=== PATIENT | female | born 1985 | race Caucasian/White ===

== ENCOUNTER 2016-09-20 13:22 | Outpatient (CLI) | payer OTHER | END 2016-09-20 13:23 | disposition home or self-care (01) | DX: N76.0 Acute vaginitis (principal) ==

== ENCOUNTER 2017-08-03 08:00 | Outpatient (CLI) | payer OTHER ==
[2017-08-03 18:13] LABS: BASOPHILS % (AUTO) 0.6 %; EOSINOPHILS # (AUTO) 0.1 10^3/uL (0.0-0.7); EOSINOPHILS % (AUTO) 1.3 %; HCT - HEMATOCRIT 42.8 % (37.0-47.0); HGB - HEMOGLOBIN 14.1 g/dL (12.0-16.0); LYMPHOCYTES # (AUTO) 2.2 10^3/uL (1.5-3.5); LYMPHOCYTES % (AUTO) 42.7 %; MEAN CORPUSCULAR HEMOGLOBIN 28.9 pg (27.0-31.0); MEAN CORPUSCULAR VOLUME 87.6 fL (81.0-99.0); MEAN PLATELET VOLUME 11.3 fL (7.9-10.8); MONOCYTES # (AUTO) 0.4 10^3/uL (0.0-1.0); MONOCYTES % (AUTO) 8.5 %; NEUTROPHILS # (AUTO) 2.4 10^3/uL (1.5-6.6); NEUTROPHILS % (AUTO) 46.9 %; NUCLEATED RED BLOOD CELLS AUTO 0.1 /100WBC; RED BLOOD COUNT 4.89 10^6/uL (4.20-5.40)
[2017-08-03 18:32] LABS: ALBUMIN/GLOBULIN RATIO 1.4 (1.0-2.2); BUN - BLOOD UREA NITROGEN 14 mg/dL (6-20); CALCIUM 9.2 mg/dL (8.5-10.3); CARBON DIOXIDE - CO2 25 mmol/L (21-32); CHLORIDE 101 mmol/L (101-111); CHOL/HDL RATIO 2.1 (<4.4); CHOLESTEROL 185 mg/dL; CREATININE 0.7 mg/dL (0.4-1.0); GFR - MDRD 98 (>89); GLUCOSE 84 mg/dL (70-100); HDL CHOLESTEROL 89 mg/dL; POTASSIUM 3.8 mmol/L (3.5-5.0); SODIUM 135 mmol/L (135-145); TOTAL PROTEIN 7.8 g/dL (6.7-8.2); TRIGLYCERIDES 48 mg/dL; VLDL CHOLESTEROL 10 mg/dL
== END 2017-08-03 08:01 | disposition home or self-care (01) ==
LOC: LAB.WCP 08:00
PROVIDERS: ATTEND Physician Assistant Medical
DX: Z00.00 Encounter for general adult medical examination without abnormal findings (principal)
CPT/HCPCS: 36415; 80050; 80061

== ENCOUNTER 2017-09-26 08:00 | Outpatient (CLI) | payer OTHER | END 2017-09-26 08:01 | LOC: LAB.R 08:00 | PROVIDERS: ATTEND Registered Nurse | DX: Z31.49 Encounter for other procreative investigation and testing (principal) | CPT/HCPCS: 87491; 87591 ==

== ENCOUNTER 2017-10-05 17:26 | Outpatient (CLI) | payer OTHER | END 2017-10-05 17:27 | disposition home or self-care (01) | LOC: LAB 17:26 | PROVIDERS: ATTEND Registered Nurse | DX: Z31.49 Encounter for other procreative investigation and testing (principal) | CPT/HCPCS: 84144 ==

== ENCOUNTER 2017-10-25 17:36 | Outpatient (CLI) | payer OTHER ==
[2017-10-25 19:11] LABS: PROLACTIN 16.69 ng/mL
[2017-10-25 19:34] LABS: FOLLICLE STIMULATING HORMONE 6.73 mIU/mL
[2017-10-25 19:35] LABS: LUTEINIZING HORMONE 18.48 mIU/mL
[2017-10-26 10:47] LABS: ESTRADIOL 44 pg/mL
[2017-10-29 22:21] LABS: DHEA SULFATE 298 mcg/dL (23-266)
== END 2017-10-25 17:37 | disposition home or self-care (01) ==
LOC: LAB 17:36
PROVIDERS: ATTEND Registered Nurse
DX: Z31.49 Encounter for other procreative investigation and testing (principal)
CPT/HCPCS: 36415; 81599; 82627; 82670; 83001; 83002; 84146; 84402; 84403

== ENCOUNTER 2017-11-06 18:10 | Emergency (ER) | payer OTHER ==
[2017-11-06 18:19] VITALS: BP 139/91
[2017-11-06] MEDS ORDERED: SULFAMETH/TRIMETH DS 800/160 MG TABLET PO STA (18:28)
[2017-11-06] MEDS ORDERED: BUFFERED LIDOCAINE 10 ML SYRINGE SUBQ STA (18:28)
--- NOTE | 2017-11-06 18:30 | ED Physician Documentation ---
PD HPI SKIN - Stated complaint Stated Complaint: BUMP NEAR L ARMPIT - Chief complaint Chief Complaint: Wound - History obtained from History obtained from: Patient - History of Present Illness Timing - onset: Other (3 days painful lump L axilla, no fever) Review of Systems Constitutional: denies: Fever, Chills Nose: reports: Reviewed and negative Cardiac: reports: Reviewed and negative Respiratory: reports: Reviewed and negative PD PAST MEDICAL HISTORY - Past Medical History Past Medical History: No - Past Surgical History Past Surgical History: No - Present Medications Home Medications: Ambulatory Orders Medication Instructions Recorded Confirmed Sulfamethoxazole/Trimethoprim 1 each PO BID 7 Days tablet 11/06/17 [Sulfamethoxazole-Tmp Ds Tablet] - Allergies Allergies/Adverse Reactions: Allergies Allergy/AdvReac Type Severity Reaction Status Date / Time cefaclor [From [facility]] Allergy Unknown Verified 11/06/17 18:18 - Social History Does the pt smoke?: No Smoking Status: Never smoker PD ED PE NORMAL - Vitals Vital signs reviewed: Yes - General General: Alert and oriented X 3, No acute distress - Derm Derm: Other (In the anterior left axilla there is a 1 x 2 cm pointed abscess with mild overlying cellulitis.) - Neuro Neuro: Alert and oriented X 3, Normal speech - Psych Psych: Normal mood, Normal affect Results - Vitals Vitals: Vital Signs - 24 hr 11/06/17 18:16 Temperature 36.9 C Heart Rate 89 Respiratory 16 Rate Blood Pressure 139/91 H O2 Saturation 100 Oxygen O2 Source Room air Procedures - Abscess I&D (location) L axilla Preparation: Alcohol, Lidocaine 1% Incision: Incised with scalpel, Purulent drainage, Loculations broken, Culture obtained. No: Packed Other: Pt tolerated well, Antibiotic prescribed Departure - Departure Disposition: 01 Home, Self Care Clinical Impression: Abscess Condition: Good Record reviewed to determine appropriate education?: Yes Instructions: ED Abscess IandD Prescriptions: Sulfamethoxazole/Trimethoprim [Sulfamethoxazole-Tmp Ds Tablet] 1 each PO BID 7 Days tablet Comments: We are performing a wound culture, the results should be done in 48-72 hours. If antibiotic change is necessary we will call you. Return if worse in the meantime, especially if you develop increased pain, fevers, cannot keep down the medication. Otherwise follow-up with your physician in approximately 2-3 days. Your blood pressure was elevated today on check into the emergency department. This does not mean that you have hypertension, it is a common phenomenon to come to the emergency department and have elevated blood pressure. I recommend that you see your primary care physician within the week to have it rechecked when you are feeling better.
[2017-11-06] MEDS ORDERED: BUFFERED LIDOCAINE 10 ML SYRINGE ONE (18:32)
== END 2017-11-06 18:41 | disposition home or self-care (01) ==
LOC: ED 18:10
DX: L02.412 Cutaneous abscess of left axilla (principal); R03.0 Elevated blood-pressure reading, without diagnosis of hypertension
CPT/HCPCS: 10060; 87070; 87205; 99283; A9270

== ENCOUNTER 2017-11-16 11:16 | Outpatient (CLI) | payer OTHER | END 2017-11-16 11:17 | disposition home or self-care (01) | LOC: LAB.R 11:16 | PROVIDERS: ATTEND Registered Nurse | DX: Z11.3 Encounter for screening for infections with a predominantly sexual mode of transmission (principal) | CPT/HCPCS: 87491; 87591 ==

== ENCOUNTER 2017-12-08 09:02 | Outpatient (CLI) | payer OTHER ==
--- NOTE | 2017-12-08 15:19 | Ultrasound Report ---
EXAM: RENAL ULTRASOUND EXAM DATE: 12/08/2017 10:06 AM. CLINICAL HISTORY: ANDROGEN EXCESS. COMPARISON: None. TECHNIQUE: Real-time scanning was performed with static images obtained. FINDINGS: Right Kidney: 10.6 x 4.1 x 4.8 cm. Mild hydronephrosis. No mass. Left Kidney: 11.3 x 5.2 x 5.2 cm. Mild hydronephrosis. No mass. Bladder: Bilateral jets seen. The prevoid bladder volume was 565.9 cc. The postvoid bladder volume wa s 46.4 cc. Other: None. IMPRESSION: Mild bilateral hydronephrosis decreases to some extent post void [facility] Referring Provider Line: [phone] SITE ID: [id number]
--- NOTE | 2017-12-08 15:24 | Ultrasound Report ---
EXAM: PELVIC ULTRASOUND EXAM DATE: 12/08/2017 11:30 AM. CLINICAL HISTORY: POLYCYSTIC OVARIAN SYNDROME. COMPARISON: None. TECHNIQUE: Realtime transabdominal pelvic scan performed to identify the uterus and adnexa and as an overview of other pelvic structures, followed by transvaginal scan to provide greater detail of the u terus and adnexa, with static image documentation. FINDINGS: Uterus: 8.1 x 3.3 x 4.7 cm, volume 65.7 cc. Anteverted position. Normal overall size and echotexture. Masses: None. Endometrium: 6 mm. Normal. Cervix: Unremarkable. Right Ovary: 4.2 x 2.5 x 2.3 cm, volume 12.6 cc. Normal echotexture and blood flow. Left Ovary: 3.9 x 1.9 x 3.4 cm, volume 13.1 cc. Normal echotexture and blood flow. Free Fluid: None. Other: None. IMPRESSION: Normal pelvic ultrasound. [facility] Referring Provider Line: [phone] SITE ID: [id number]
== END 2017-12-08 09:03 | disposition home or self-care (01) ==
LOC: DI 09:02
PROVIDERS: ATTEND Registered Nurse
DX: N13.30 Unspecified hydronephrosis (principal); E28.2 Polycystic ovarian syndrome
CPT/HCPCS: 76770; 76830; 76856

== ENCOUNTER 2018-09-08 11:19 | Outpatient (CLI) | payer OTHER | END 2018-09-08 11:20 | disposition home or self-care (01) | LOC: LAB 11:19 | PROVIDERS: ATTEND Registered Nurse | DX: E28.2 Polycystic ovarian syndrome (principal) ==

== ENCOUNTER 2018-10-01 07:58 | Outpatient (CLI) | payer OTHER | END 2018-10-01 07:59 | disposition home or self-care (01) | LOC: LAB 07:58 | PROVIDERS: ATTEND Registered Nurse | DX: E28.2 Polycystic ovarian syndrome (principal) | CPT/HCPCS: 36415; 82951; 84144 ==

== ENCOUNTER 2018-10-14 17:26 | Outpatient (CLI) | payer OTHER | END 2018-10-14 17:27 | disposition home or self-care (01) | LOC: LAB 17:26 | PROVIDERS: ATTEND Registered Nurse | DX: E28.2 Polycystic ovarian syndrome (principal) | CPT/HCPCS: 36415; 84144 ==

== ENCOUNTER 2018-11-28 10:20 | Outpatient (CLI) | payer OTHER ==
[2018-11-28 19:44] LABS: HEMOGLOBIN A1C 0.43 g/dL
== END 2018-11-28 10:21 | disposition home or self-care (01) ==
LOC: LAB.WCP 10:20
PROVIDERS: ATTEND Registered Nurse
DX: N97.9 Female infertility, unspecified (principal)
CPT/HCPCS: 36415; 82947; 83036; 84144; 84702

== ENCOUNTER 2018-12-06 21:10 | Outpatient (CLI) | payer OTHER ==
--- NOTE | 2018-12-08 06:42 | Ultrasound Report ---
Reason: POSITIVE TEST Procedure Date: 12/06/2018 Accession Number: [id number] / [id number] Procedure: US - OB Transvaginal CPT Code: FULL RESULT: EXAM: FIRST TRIMESTER OBSTETRIC ULTRASOUND (Less than 11 weeks) EXAM DATE: 12/06/2018 10:56 PM. CLINICAL HISTORY: test positive. LMP: 10/23/2018, 6 weeks 2 days. COMPARISONS: PELVIC W/TRANSVAGINAL 12/08/2017 10:00 AM. TECHNIQUE: Transabdominal and transvaginal ultrasound examination with static image documentation. FINDINGS: Gestational Sac: An intrauterine fluid-filled sac contains both an embryo and yolk sac. Embryo: CRL (crown-rump length) measures 4 mm corresponding to an estimated gestational age of 6 weeks 2 days. Heart Rate: 114 beats per minute. Placenta: Not visible at this gestational age. Amniotic fluid: Not accurately assessed at this gestational age. Uterus: Unremarkable anteverted appearance. Cervix: Closed. Right Ovary: Volume 16 cc. Normal echotexture and blood flow. Left Ovary: Volume 4 cc. Normal echotexture and blood flow. Free Fluid: None. Other: None. IMPRESSION: Single live intrauterine at 6 weeks 2 days by LMP, today's exam is concordant -- for an estimated delivery date of 07/30/2019. [facility]
--- NOTE | 2018-12-08 06:42 | Ultrasound Report ---
Reason: TEST POSITIVE Procedure Date: 12/06/2018 Accession Number: [id number] / [id number] Procedure: US - OB First Trimester CPT Code: FULL RESULT: EXAM: FIRST TRIMESTER OBSTETRIC ULTRASOUND (Less than 11 weeks) EXAM DATE: 12/06/2018 10:56 PM. CLINICAL HISTORY: test positive. LMP: 10/23/2018, 6 weeks 2 days. COMPARISONS: PELVIC W/TRANSVAGINAL 12/08/2017 10:00 AM. TECHNIQUE: Transabdominal and transvaginal ultrasound examination with static image documentation. FINDINGS: Gestational Sac: An intrauterine fluid-filled sac contains both an embryo and yolk sac. Embryo: CRL (crown-rump length) measures 4 mm corresponding to an estimated gestational age of 6 weeks 2 days. Heart Rate: 114 beats per minute. Placenta: Not visible at this gestational age. Amniotic fluid: Not accurately assessed at this gestational age. Uterus: Unremarkable anteverted appearance. Cervix: Closed. Right Ovary: Volume 16 cc. Normal echotexture and blood flow. Left Ovary: Volume 4 cc. Normal echotexture and blood flow. Free Fluid: None. Other: None. IMPRESSION: Single live intrauterine at 6 weeks 2 days by LMP, today's exam is concordant -- for an estimated delivery date of 07/30/2019. [facility]
== END 2018-12-06 21:11 | disposition home or self-care (01) ==
LOC: DI 21:10
PROVIDERS: ATTEND Registered Nurse
DX: Z32.01 Encounter for pregnancy test, result positive (principal)
CPT/HCPCS: 76801; 76817

== ENCOUNTER 2019-01-01 08:00 | Outpatient (CLI) | payer OTHER ==
[2019-01-01 12:48] LABS: BASOPHILS % (AUTO) 0.2 %; EOSINOPHILS % (AUTO) 0.5 %; HGB - HEMOGLOBIN 12.6 g/dL (12.0-16.0); LYMPHOCYTES # (AUTO) 1.6 10^3/uL (1.5-3.5); LYMPHOCYTES % (AUTO) 20.7 %; MEAN CORPUSCULAR HEMOGLOBIN 29.5 pg (27.0-31.0); MEAN CORPUSCULAR HGB CONC 34.2 g/dL (32.0-36.0); MEAN CORPUSCULAR VOLUME 86.1 fL (81.0-99.0); MEAN PLATELET VOLUME 10.1 fL (7.9-10.8); MONOCYTES # (AUTO) 0.5 10^3/uL (0.0-1.0); MONOCYTES % (AUTO) 6.5 %; NEUTROPHILS # (AUTO) 5.5 10^3/uL (1.5-6.6); NEUTROPHILS % (AUTO) 72.1 %; PLT - PLATELET COUNT 163 10^3/uL (130-450); RED BLOOD COUNT 4.29 10^6/uL (4.20-5.40); RED CELL DISTRIBUTION WIDTH 13.3 % (12.0-15.0); WHITE BLOOD COUNT 7.6 x10^3/uL (4.8-10.8)
[2019-01-01 13:23] LABS: HB2 TOTAL 13.2 g/dL; HEMOGLOBIN A1C 0.37 g/dL; HEMOGLOBIN A1C % 4.7 % (4.6-6.2)
[2019-01-02 13:36] LABS: HIV AG/AB 4TH GEN NON-REACTIVE (NON-REACTIVE)
[2019-01-02 13:37] LABS: HEPATITIS B SURFACE ANTIGEN NON-REACTIVE (NON-REACTIVE)
[2019-01-02 13:52] LABS: HEPATITIS C ANTIBODY NON-REACTIVE (NON-REACTIVE)
== END 2019-01-01 23:59 | disposition home or self-care (01) ==
LOC: LAB.N 08:00
PROVIDERS: ATTEND Registered Nurse
DX: Z36.9 Encounter for antenatal screening, unspecified (principal); E28.2 Polycystic ovarian syndrome
CPT/HCPCS: 36415; 81001; 81599; 83036; 85025; 86592; 86762; 86803; 86850; 86900; 86901; 87086; 87340; 87389

== ENCOUNTER 2019-02-19 08:25 | Outpatient (CLI) | payer SELFPAY | END 2019-02-19 08:26 | disposition home or self-care (01) | LOC: LAB 08:25 | PROVIDERS: ATTEND Nurse Practitioner Obstetrics & Gynecology | DX: Z34.90 Encounter for supervision of normal pregnancy, unspecified, unspecified trimester (principal) | CPT/HCPCS: 36415 ==

== ENCOUNTER 2019-02-26 08:00 | Outpatient (CLI) | payer OTHER ==
[2019-02-26 14:27] LABS: MUDS CUTOFF CONCENTRATIONS CUTOFF CONC BELOW:
[2019-02-26 14:45] LABS: AMPHETAMINE SCREEN,URINE NEGATIVE (NEGATIVE); BENZODIAZEPINES SCREEN, URINE NEGATIVE (NEGATIVE); COCAINE SCREEN URINE NEGATIVE (NEGATIVE); METHADONE SCREEN, URINE NEGATIVE (NEGATIVE); METHAMPHETAMINES SCREEN, URINE NEGATIVE (NEGATIVE); OPIATE SCREEN, URINE NEGATIVE (NEGATIVE); OXYCODONE SCREEN, URINE NEGATIVE (NEGATIVE); PROPOXYPHENE SCREEN, URINE NEGATIVE (NEGATIVE); TRICYCLIC ANTIDEPRESSANT,URINE NEGATIVE (NEGATIVE)
== END 2019-02-26 23:59 | disposition home or self-care (01) ==
LOC: LAB.R 08:00
PROVIDERS: ATTEND Nurse Practitioner Obstetrics & Gynecology
DX: Z36.89 Encounter for other specified antenatal screening (principal)
CPT/HCPCS: 80306

== ENCOUNTER 2019-02-26 09:00 | Outpatient (CLI) | payer OTHER ==
[2019-02-26 21:38] LABS: CANDIDA GROUP DNA NEGATIVE (NEGATIVE); CANDIDA KRUSEI DNA NEGATIVE (NEGATIVE); TRICHOMONAS VAGINALIS DNA NEGATIVE (NEGATIVE)
== END 2019-02-26 23:59 | disposition home or self-care (01) ==
LOC: LAB.R 09:00
PROVIDERS: ATTEND Nurse Practitioner Obstetrics & Gynecology
DX: N76.0 Acute vaginitis (principal); Z36.89 Encounter for other specified antenatal screening
CPT/HCPCS: 80306; 87661; 87801

== ENCOUNTER 2019-03-05 08:08 | Outpatient (CLI) | payer OTHER ==
--- NOTE | 2019-03-05 14:13 | Ultrasound Report ---
Reason: SUPERVISION OF NORMAL Procedure Date: 03/05/2019 Accession Number: [id number] / [id number] Procedure: US - OB Detailed Eval CPT Code: FULL RESULT: EXAM: COMPLETE OBSTETRICAL ULTRASOUND EXAM DATE: 03/05/2019 10:03 AM. CLINICAL HISTORY: anatomic survey. COMPARISON: None. TECHNIQUE: Real-time sonographic evaluation of the fetus performed by the benefits clerk. Multiple claim service representative static images were saved for review. DATING: Established EGA 10/23/2018 with ARTI 19 weeks 0 days based on LMP and first ultrasound. EGA 18 weeks 6 days with ARTI 07/31/2019 based on the current ultrasound. GENERAL EVALUATION [place] . Cardiac activity: 143 bpm. movement: Visualized. Presentation: Vertex Placenta: Anterior position. No evidence for previa. Umbilical cord: 3 vessel cord. Central placental cord origin. Amniotic fluid: Subjectively normal. MVP 3.1 cm. BIOMETRY Bi-Parietal Diameter (BPD): 4.5 cm, 19 weeks 4 days Head Circumference (HC): 16.6 cm, 19 weeks 2 days Abdominal Circumference (AC): 13 cm, 18 weeks 4 days Femur Length (FL): 2.7 cm, 18 weeks 2 days Estimated Weight: 246 g, 22nd percentile for 19 weeks 0 days. ANATOMY The intracranial structures, profile, face/nose/lips, spine, 4 chamber heart and outflow tracts, stomach, abdominal wall and cord insertion, diaphragm, kidneys, bladder, and extremities were visualized and demonstrate no abnormality with the exception of echogenic intracardiac foci which are noted. MATERNAL STRUCTURES Uterus: Unremarkable. Cervix: Long and closed. Transabdominal length 4.6 cm. Right ovary/adnexa: Unremarkable. Left ovary/adnexa: Unremarkable. Free fluid: None. IMPRESSION: 1. [place] live intrauterine with gestational age 19 weeks 0 days based on working due date. 2. Estimated weight is within expected limits for assigned dating. 3. 1 or more soft markers for aneuploidy are detected. Recommend correlation with maternal age, ethnicity, and aneuploidy risk assessment results such as serum screening or cell-free DNA testing to help guide further management. [facility]
== END 2019-03-05 08:09 | disposition home or self-care (01) ==
LOC: DI 08:08
PROVIDERS: ATTEND Nurse Practitioner Obstetrics & Gynecology
DX: Z34.90 Encounter for supervision of normal pregnancy, unspecified, unspecified trimester (principal)
CPT/HCPCS: 76811

== ENCOUNTER 2019-03-20 19:01 | Outpatient (CLI) | payer OTHER ==
[2019-03-20 19:27] LABS: BASOPHILS % (AUTO) 0.2 %; EOSINOPHILS # (AUTO) 0.1 10^3/uL (0.0-0.7); LYMPHOCYTES # (AUTO) 2.1 10^3/uL (1.5-3.5); LYMPHOCYTES % (AUTO) 24.6 %; MEAN CORPUSCULAR HEMOGLOBIN 30.4 pg (27.0-31.0); MEAN CORPUSCULAR HGB CONC 33.7 g/dL (32.0-36.0); MEAN CORPUSCULAR VOLUME 90.1 fL (81.0-99.0); MEAN PLATELET VOLUME 11.5 fL (7.9-10.8); MONOCYTES # (AUTO) 0.6 10^3/uL (0.0-1.0); MONOCYTES % (AUTO) 7.4 %; NEUTROPHILS # (AUTO) 5.6 10^3/uL (1.5-6.6); NEUTROPHILS % (AUTO) 66.4 %; PLT - PLATELET COUNT 177 10^3/uL (130-450); RED BLOOD COUNT 3.95 10^6/uL (4.20-5.40); WHITE BLOOD COUNT 8.4 x10^3/uL (4.8-10.8)
== END 2019-03-20 19:02 | disposition home or self-care (01) ==
LOC: LAB 19:01
PROVIDERS: ATTEND Registered Nurse
DX: R00.2 Palpitations (principal)
CPT/HCPCS: 36415; 84443; 85025

== ENCOUNTER 2019-04-25 08:45 | Outpatient (CLI) | payer OTHER ==
[2019-04-25 10:20] LABS: MEAN CORPUSCULAR HGB CONC 34.6 g/dL (32.0-36.0); MEAN CORPUSCULAR VOLUME 89.7 fL (81.0-99.0); MEAN PLATELET VOLUME 11.1 fL (7.9-10.8); RED BLOOD COUNT 4.19 10^6/uL (4.20-5.40); RED CELL DISTRIBUTION WIDTH 12.2 % (12.0-15.0); WHITE BLOOD COUNT 9.2 x10^3/uL (4.8-10.8)
== END 2019-04-25 08:46 | disposition home or self-care (01) ==
LOC: LAB 08:45
PROVIDERS: ATTEND Nurse Practitioner Obstetrics & Gynecology
DX: Z36.89 Encounter for other specified antenatal screening (principal)
CPT/HCPCS: 36415; 82950; 85027; 86850

== ENCOUNTER 2019-05-22 08:00 | Outpatient (CLI) | payer OTHER | END 2019-05-22 23:59 | disposition home or self-care (01) | LOC: LAB.R 08:00 | PROVIDERS: ATTEND Obstetrics & Gynecology | DX: R35.0 Frequency of micturition (principal) | CPT/HCPCS: 87086 ==

== ENCOUNTER 2019-07-08 11:45 | Outpatient (CLI) | payer OTHER | END 2019-07-08 23:59 | disposition home or self-care (01) | LOC: LAB.R 11:45 | PROVIDERS: ATTEND Nurse Practitioner Obstetrics & Gynecology | DX: Z36.89 Encounter for other specified antenatal screening (principal) | CPT/HCPCS: 87797 ==

== ENCOUNTER 2019-07-30 19:48 | Outpatient (CLI) | payer OTHER ==
[2019-07-30 20:50] VITALS: BP 139/90
[2019-07-30] MEDS ORDERED: LACTATED RINGERS 1,000 ML IV ONE (22:46)
[2019-07-30] MEDS ORDERED: SODIUM CHLORIDE FLUSH 0.9% 10 ML SYRINGE ONE (22:46)
--- NOTE | 2019-07-31 07:16 | PROCEDURE REPORT ---
- HPI Diagnosis/Indication for NST: Other (rule out labor) Current EDU 07/30/19 Gestation 40 Weeks and 0 Days 1 Para 0 Vital Signs Temperature 36.4 C L 07/30/19 19:57 Heart Rate 98 07/30/19 19:57 Respiratory Rate 18 07/30/19 19:57 Blood Pressure 141/93 H 07/30/19 19:57 O2 Saturation 100 07/30/19 19:57 Temperature 36.4 C L 07/30/19 19:57 Heart Rate 83 07/30/19 20:17 Respiratory Rate 16 07/30/19 20:17 Blood Pressure 139/90 H 07/30/19 20:17 O2 Saturation 100 07/30/19 20:04 - Results and Plan Findings/Impression: reactive NST Cx finger tip 90% Plan: reviewed Labor signs home
== END 2019-07-30 20:35 | disposition home or self-care (01) ==
LOC: WFO 19:48 → FBP 19:50 → WFO 20:35
PROVIDERS: ATTEND Obstetrics & Gynecology
DX: Z34.03 Encounter for supervision of normal first pregnancy, third trimester (principal)
CPT/HCPCS: 99213

== ENCOUNTER 2019-07-30 22:18 | Inpatient (IN) | payer OTHER ==
[2019-07-30] MEDS ORDERED: SODIUM CHLORIDE FLUSH 0.9% 10 ML SYRINGE IVP PRN (22:33)
[2019-07-30] MEDS: LACTATED RINGERS 1,000 ML IV SCH (23:07)
[2019-07-30] MEDS: CLINDAMYCIN 900 MG/50 ML 50 ML IV SCH (23:22)
[2019-07-30 23:23] LABS: BASOPHILS % (AUTO) 0.2 %; EOSINOPHILS % (AUTO) 0.1 %; HGB - HEMOGLOBIN 14.1 g/dL (12.0-16.0); LYMPHOCYTES # (AUTO) 1.6 10^3/uL (1.5-3.5); LYMPHOCYTES % (AUTO) 11.5 %; MEAN CORPUSCULAR HEMOGLOBIN 31.1 pg (27.0-31.0); MEAN PLATELET VOLUME 13.2 fL (7.9-10.8); MONOCYTES # (AUTO) 0.9 10^3/uL (0.0-1.0); MONOCYTES % (AUTO) 5.9 %; NEUTROPHILS # (AUTO) 11.7 10^3/uL (1.5-6.6); NEUTROPHILS % (AUTO) 81.7 %; PLT - PLATELET COUNT 150 10^3/uL (130-450); RED BLOOD COUNT 4.53 10^6/uL (4.20-5.40); RED CELL DISTRIBUTION WIDTH 13.1 % (12.0-15.0); WHITE BLOOD COUNT 14.3 x10^3/uL (4.8-10.8)
[2019-07-30] MEDS: ONDANSETRON 4 MG/2 ML VIAL IVP PRN (23:24)
[2019-07-30] MEDS ORDERED: ROPIVACAINE 0.2% 200 MG/100 ML BAG EP ONE (23:54)
[2019-07-31] MEDS ORDERED: LACTATED RINGERS 500 ML IV ONE (00:44)
[2019-07-31] MEDS ORDERED: ONDANSETRON 4 MG/2 ML VIAL IVP PRN (00:44)
[2019-07-31] MEDS ORDERED: ePHEDrine 50 MG/ML VIAL IVP PRN (00:44)
[2019-07-31] MEDS ORDERED: NALBUPHINE 10 MG/ML AMP IVP PRN (00:44)
[2019-07-31] MEDS ORDERED: NALOXONE 0.4 MG/ML VIAL IVP PRN (00:44)
[2019-07-31] MEDS ORDERED: diphenhydrAMINE INJ 50 MG/ML VIAL IVP PRN (00:44)
[2019-07-31] MEDS ORDERED: METOCLOPRAMIDE 10 MG/2 ML VIAL IVP PRN (00:44)
[2019-07-31] MEDS ORDERED: ROPIVACAINE 0.2% 200 MG/100 ML BAG EP PRN (00:44)
--- NOTE | 2019-07-31 00:47 | ANESTHESIA ---
Pre-Anesthesia VS, & Labs - Diagnosis active labor - Procedure labor epidural Height 5 ft 2 in Body Mass Index 23.0 - NPO >8 hours - Is Patient ?: Yes - Lab Results Current Lab Results: Laboratory Tests 07/30/19 23:07: WBC 14.3 H, RBC 4.53, Hgb 14.1, Hct 40.3, MCV 89.0, MCH 31.1 H, MCHC 35.0, RDW 13.1, Plt Count 150, MPV 13.2 H, Neut # (Auto) 11.7 H, Lymph # (Auto) 1.6, [place] # (Auto) 0.9, Eos # (Auto) 0.0, Baso # (Auto) 0.0, Absolute Nucleated RBC 0.00, Nucleated RBC % 0.0 Fish Bones: 07/30/19 23:07 Home Medications and Allergies Active Medications Clindamycin Phosphate (Cleocin 900 Mg/50 Ml) 50 mls @ 50 mls/hr IV Q6HR [facility] Last Admin: 07/30/19 23:22 Dose: 50 mls/hr Lactated Ringer's (Lr) 1,000 mls @ 150 mls/hr IV .Q6H40M [facility] Ondansetron HCl (Zofran Inj) 4 mg IVP Q4H PRN PRN Reason: Nausea / Vomiting Last Admin: 07/30/19 23:24 Dose: 4 mg Sodium Chloride (Normal Saline Flush 0.9%) 10 ml IVP PRN PRN PRN Reason: NEEDED PER PROVIDER ORDERS Sodium Chloride (Normal Saline Flush 0.9%) 10 ml IVP 0100,0900,1700 [facility] Last Admin: 07/30/19 23:27 Dose: 10 ml Allergies/Adverse Reactions: Allergies Allergy/AdvReac Type Severity Reaction Status Date / Time cefaclor [From [facility]] Allergy Unknown Verified 11/06/17 18:18 Anes History & Medical History - Anesthetic History Anesthesia Complications: reports: No previous complications - Medical History Cardiovascular: reports: None Pulmonary: reports: None Gastrointestinal: reports: None Urinary: reports: None Neuro: reports: None Musculoskeletal: reports: None Endocrine/Autoimmune: reports: None Smoking Status: Never smoker Exam General: Alert Dental: WNL Mouth Opening: Greater than 4 Fingerbreadths Neck Mobility: Normal Mallampati classification: I Thyromental Distance: greater than 6 cm Respiratory: Lungs clear Cardiovascular: Regular rate Plan Anesthesia Type: Epidural Consent for Procedure(s) Verified and Reviewed: Yes Code Status: Attempt Resuscitation ASA classification: 2-Mild systemic disease Is this case an emergency?: No
[2019-07-31] MEDS ORDERED: SODIUM CHLORIDE FLUSH 0.9% 10 ML SYRINGE IVP SCH (01:00)
[2019-07-31] MEDS: LACTATED RINGERS 1,000 ML IV SCH (02:31)
[2019-07-31] MEDS ORDERED: OXYTOCIN/DEXTROSE 5 % 30 UNIT/500 ML BAG IV ONE (05:15)
[2019-07-31] MEDS: CLINDAMYCIN 900 MG/50 ML 50 ML IV SCH (05:21)
--- NOTE | 2019-07-31 07:12 | PROVIDER PROGRESS NOTE ---
Labor Progress Note - Uterine Monitoring Uterine Monitoring Mode: positive: External toco Contraction Frequency (min/apart): 3 Contraction Intensity: positive: Strong Uterine Resting Tone: positive: Soft - Monitoring Monitor Mode: positive: External ultrasound Heart Rate Baseline: 145 Heart Rate Variability: positive: Moderate (6-25 bmp) Accelerations: positive: Present, 15x15 Decelerations: positive: Early (pt has developed heads) Strip Review: positive: Category I - Vaginal Exam Dilation (in cm): Ant lip Station: 0 Cervical Position: Anterior - Labor Progress Note Labor Progress Note/Additional Text: recheck 30 min
--- NOTE | 2019-07-31 07:51 | PREOP HISTORY & PHYSICAL ---
DATE OF SERVICE: 07/30/2019 Physician: Ken Blue MD IDENTIFICATION: Patient is a 34-year-old primigravida whose EDC is 07/30/2019. This was confirmed w ith ultrasounds at 6, and then again at 18 weeks EGA. Her last menstrual period was 10/23/2018. CHIEF COMPLAINT: Contractions. HISTORY OF PRESENT ILLNESS: Patient had developed contractions at roughly 4 o'clock the morning of . These continued to become more painful and stronger with time. She was seen earlier in the evening of the , at which time her cervix was fingertip. She was sent home. She returned with strong contractions and her cervix was noted to be 4 cm with membranes intact. For this reason, she was admitted. Patient's OB care started at 10 weeks EGA. She has a history of polycystic ovary dise ase and was placed on Metformin to conceive, which was successful. She was continued on the Metformi n throughout her . Patient's labs showed her to be B positive. She is negative for RPR, he patitis B, chlamydia, as well as GC. She is rubella immune. Her 50 gram Glucola was 96. However, s he was taking metformin. She had a hemoglobin A1c of 4.7. Patient had a group B strep culture, whic h was positive; however, the patient is ALLERGIC TO CEFACLOR. PAST MEDICAL HISTORY: Positive for PCOS. PAST SURGICAL HISTORY: None. ALLERGIES: CEFACLOR. CURRENT MEDICATIONS: Those of vitamins, as well as metformin 500 mg. HABITS: Patient denies use of alcohol, tobacco, street or addictive drugs. SOCIAL HISTORY: Patient is to an active duty spouse. 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 FAMILY HISTORY: Positive for hypertension, both mother and father. There is also a history of lung cancer in a former smoker, as well as dementia and colon cancer. PHYSICAL EXAMINATION GENERAL: Patient is a well-developed, well-nourished, white female. She is in no acute distress. H er epidural is in place and is functioning well. VITAL SIGNS: Stable. HEENT: Pupils are equal and round. Her extraocular muscles are intact. Thyroid is not palpably enl arged. HEART: Regular rate and rhythm without murmurs. LUNGS: Lung pulliam are clear without rales or wheezes. BACK: No spinal or CVA tenderness. ABDOMEN: Uterus is gravid. PELVIC: Shows an anterior lip at this time. However, the is left occiput, transverse, at 0 s tation. IMPRESSION 1. A 34-year-old, primigravida, 40 weeks estimated gestational age. 2. History of polycystic ovary disease, currently on metformin; thus, the ability to accurately diag nose gestational diabetes has been clouded. However, her 50 gram Glucola and her hemoglobin A1c were both normal. 3. Active labor and currently progressing well. PLAN: Epidural has been placed. I will roll the patient onto her right side in the hopes that the i nfant will rotate occiput anterior. At that point, when she is complete, we will begin pushing. Bec ause of her group B strep status, patient has been started on clindamycin 900 mg IV. TD: 07/31/2019 07:13
--- NOTE | 2019-07-31 08:58 | PROVIDER PROGRESS NOTE ---
Objective - Vital Signs/Intake & Output Intake & Output: Intake & Output 07/28/19 07/29/19 07/30/19 07/31/19 23:59 23:59 23:59 23:59 Intake Total 557.5 Output Total 225 Balance 332.5 - Lab Results Fish Bones: 07/30/19 23:07 Other Labs: Lab Results x24hrs 07/30/19 Range/Units 23:07 WBC 14.3 H (4.8-10.8) x10^3/uL RBC 4.53 (4.20-5.40) 10^6/uL Hgb 14.1 (12.0-16.0) g/dL Hct 40.3 (37.0-47.0) % MCV 89.0 (81.0-99.0) fL MCH 31.1 H (27.0-31.0) pg MCHC 35.0 (32.0-36.0) g/dL RDW 13.1 (12.0-15.0) % Plt Count 150 (130-450) 10^3/uL MPV 13.2 H (7.9-10.8) fL Neut # (Auto) 11.7 H (1.5-6.6) 10^3/uL Lymph # (Auto) 1.6 (1.5-3.5) 10^3/uL [place] # (Auto) 0.9 (0.0-1.0) 10^3/uL Eos # (Auto) 0.0 (0.0-0.7) 10^3/uL Baso # (Auto) 0.0 (0.0-0.1) 10^3/uL Absolute Nucleated RBC 0.00 x10^3/uL Nucleated RBC % 0.0 /100WBC Assessment/Plan - Problem List (1) Spontaneous onset of labor Impression: 34yo G1 at 40w1d by LMP c/w 6w US presented in spontaneous labor changing from 1 to 4cm yesterday. Admitted, underwent epidural for pain control. GBS + and got clindamycin due to cefaclor allergy of hives. Currently feeling well, vaginal pressure during UC, otherwise comfortable. Had RUQ pain, mild, shortly after RN asked her if she had RUQ pain and she had denied. No visual changes, no RUBI, no change in swelling. A few elevated BPs: 147/87, 155/89 on admit, 139/90, 141/93. Others 120s/70s. HR low 100s Afebrile Cor RRR no murmurs Lungs CTA bilat LE edema trace to mid-weaver DTR 1+ patellar bilaterally. Category 1 NST [place] 2-4 UC in 10min UC palpate moderate to strong SVE stretchy edematous 8/75% effaced/0 station Problems 1) Little SVE change in 2h: Pt was 9cm and OT 2h ago. Suspect that the reverse change of SVE was likely due to position change and change in application of the vertex to the cervix. Pt has periods of spaced contractions. Will add p trangcin--consent received from pt. Will change positions [id number] using hip- opening and peanut ball to improve descent. Anticipate . 2) Elevated BPs >4h period of time: no symptoms except for mild RUQ pain but no tenderness. Normal DTR. Will get repeat CBC and add CMP and P:C ratio. Watch BPs closely and watch for any other sx of preeclampsia. 3) GBS +. Pt with +PCR. Nir is not truly in the PCN family and will switch her abx to PCN. GBS sensitivities sent. 4) Pt continued metformin during which was not c/w what she had told her outpatient providers. Began it to improve fertility while on clomid. Normal DM screening during . Will watch blood sugars in .
[2019-07-31] MEDS ORDERED: OXYTOCIN/DEXTROSE 5 % 30 UNIT/500 ML BAG IV SCH (09:00)
[2019-07-31 09:15] LABS: BASOPHILS % (AUTO) 0.2 %; LYMPHOCYTES # (AUTO) 1.4 10^3/uL (1.5-3.5); LYMPHOCYTES % (AUTO) 10.3 %; MEAN CORPUSCULAR HEMOGLOBIN 31.2 pg (27.0-31.0); MEAN CORPUSCULAR HGB CONC 34.5 g/dL (32.0-36.0); MEAN CORPUSCULAR VOLUME 90.4 fL (81.0-99.0); MONOCYTES # (AUTO) 1.2 10^3/uL (0.0-1.0); MONOCYTES % (AUTO) 8.9 %; NEUTROPHILS # (AUTO) 10.7 10^3/uL (1.5-6.6); NEUTROPHILS % (AUTO) 80.2 %; RED BLOOD COUNT 4.17 10^6/uL (4.20-5.40); RED CELL DISTRIBUTION WIDTH 13.2 % (12.0-15.0)
[2019-07-31 09:17] LABS: CREATININE,URINE 116.2 mg/dL; PROTEIN/CREATININE RATIO,URINE 0.1 (<=0.2)
[2019-07-31 09:44] LABS: WHITE BLOOD COUNT 13.4 x10^3/uL (4.8-10.8)
[2019-07-31 09:49] LABS: ALBUMIN/GLOBULIN RATIO 0.9 (1.0-2.2); BILIRUBIN,TOTAL 0.4 mg/dL (0.2-1.0); CALCIUM 8.4 mg/dL (8.5-10.3); CREATININE 0.7 mg/dL (0.4-1.0); TOTAL PROTEIN 6.2 g/dL (6.7-8.2)
[2019-07-31 09:56] LABS: PLATELET ESTIMATE, MANUAL NORMAL (130-450,000) (NORMAL); PLATELET MORPHOLOGY PLATELET CLUMPING (NORMAL)
[2019-07-31] MEDS ORDERED: AMPICILLIN 2 GM in SODIUM CHLORIDE 0.9% MINIBAG 100 ML IV ONE (10:00)
[2019-07-31] MEDS: ONDANSETRON 4 MG/2 ML VIAL IVP PRN (10:00)
[2019-07-31] MEDS ORDERED: fentaNYL 100 MCG/2 ML VIAL ONE (10:09)
[2019-07-31] MEDS ORDERED: ONDANSETRON ODT 4 MG TABLET TL PRN (12:14)
[2019-07-31] MEDS ORDERED: MAGNESIUM HYDROXIDE 2,400 MG/30 ML UDC PO PRN (12:14)
[2019-07-31] MEDS ORDERED: WITCH HAZEL/GLYCERIN 1 PAD TOP PRN (12:14)
[2019-07-31] MEDS ORDERED: diphenhydrAMINE 25 MG CAPSULE PO PRN (12:14)
[2019-07-31] MEDS ORDERED: HYDROCORTISONE 1% CREAM 28 GM TUBE PR PRN (12:14)
[2019-07-31] MEDS ORDERED: FLU VACC QS2019-20(6MOS UP)/PF 60 MCG/0.5 ML SYRINGE IM ONE (12:17)
--- NOTE | 2019-07-31 12:20 | DELIVERY NOTE ---
Delivery Note - Infant Delivery Method Infant Delivery Method: positive: Spontaneous vaginal delivery - Presentation Presentation: positive: Vertex - Nuchal Cord Nuchal Cord: positive: Present (x1), Reduced - Anesthetic Anesthetic Type: - Amniotic Fluid Description Amniotic Fluid Description: positive: Clear - Episiotomy Type Episiotomy Type: positive: None - Laceration Laceration: positive: 2nd degree - Suture Suture Type: positive: Vicryl Suture Size: positive: 2-0, 4-0 - Delivery Outcome Delivery Outcome: positive: Livebirth - [place]: positive: Placed in direct skin contact with mother, Stimulated, Warmed, [place] used sex: positive: Female - Cord Cord: positive: 3 vessels - Placenta Placenta: positive: Intact - Estimated Blood Loss Estimated Blood Loss (in cc): 200 - Post Delivery Events Post Delivery Events: positive: No post delivery events - Delivery Comments (Free Text/Narrative) Delivery Comments (Free Text/Narrative): Uncomplicated , family is bonding and is comfortable. Plan to give flu vax per pt's permission. Watch BPs. P:C was 0.1, normal CMP. CBC plts clumped but were estimated to be normal.
[2019-07-31] MEDS: IBUPROFEN 800 MG TABLET PO SCH ×2 (12:59→18:56)
[2019-07-31] MEDS: ACETAMINOPHEN 500 MG TABLET PO SCH ×2 (12:59→21:13)
[2019-07-31] MEDS ORDERED: PENICILLIN G POTASSIUM 2,500,000 UNIT in SODIUM CHLORIDE 0.9% 100ML 100 ML IV SCH (13:00)
[2019-07-31] MEDS ORDERED: AMPICILLIN 1 GM in SODIUM CHLORIDE 0.9% MINIBAG 100 ML IV SCH (14:00)
[2019-07-31] MEDS: SIMETHICONE CHEW 80 MG TABLET PO SCH ×2 (18:56→18:57)
[2019-07-31] MEDS: DOCUSATE SODIUM 100 MG CAPSULE PO SCH (21:13)
--- NOTE | 2019-08-01 00:40 | ANESTHESIA PROCEDURE NOTE ---
Anesthesia Epidural Template - Other Comments Other Comments: Called for increased c/o pain. Patient reports pain in right lower abdominal area. Epidural bolused with 100mcg fentanyl in 8ml PF NS and Epidural infusion changed to 10ml every 45 mins PIEB with no PCEA. Patient reported improved pain control.
[2019-08-01] MEDS: IBUPROFEN 800 MG TABLET PO SCH ×4 (03:59→22:08)
[2019-08-01] MEDS: ACETAMINOPHEN 500 MG TABLET PO SCH ×3 (04:53→21:23)
[2019-08-01 07:09] LABS: BASOPHILS # (AUTO) 0.1 10^3/uL (0.0-0.1); BASOPHILS % (AUTO) 0.5 %; EOSINOPHILS # (AUTO) 0.1 10^3/uL (0.0-0.7); EOSINOPHILS % (AUTO) 0.8 %; HGB - HEMOGLOBIN 9.9 g/dL (12.0-16.0); LYMPHOCYTES # (AUTO) 2.6 10^3/uL (1.5-3.5); LYMPHOCYTES % (AUTO) 19.5 %; MEAN CORPUSCULAR HGB CONC 33.8 g/dL (32.0-36.0); MEAN CORPUSCULAR VOLUME 91.8 fL (81.0-99.0); MEAN PLATELET VOLUME 12.8 fL (7.9-10.8); MONOCYTES # (AUTO) 0.8 10^3/uL (0.0-1.0); MONOCYTES % (AUTO) 6.2 %; NEUTROPHILS # (AUTO) 9.6 10^3/uL (1.5-6.6); NEUTROPHILS % (AUTO) 72.2 %; PLT - PLATELET COUNT 99 10^3/uL (130-450); RED BLOOD COUNT 3.19 10^6/uL (4.20-5.40); RED CELL DISTRIBUTION WIDTH 13.2 % (12.0-15.0); WHITE BLOOD COUNT 13.2 x10^3/uL (4.8-10.8)
--- NOTE | 2019-08-01 07:24 | PROVIDER PROGRESS NOTE ---
Subjective - Subjective Subjective: Feeling well. Some pain at the lac site, is mild. Mild cramping when . Baby is latching well, no issues with breasts. No heavy bleeding. Mood is good. Able to empty bladder. No nausea. Ambulating well. AVSS Alert, smiling, NAD Abd soft, nt/nd Fundus firm, NT, at U LE with trace non pitting edema, nontender Hct 29 34yo P1 PPD #1 s/p at term. GBS + so baby will need to staty for 48h, anticipate discharge home tomorrow. No further BP problems. Objective - Vital Signs/Intake & Output Vital Signs: Vital Signs x48h Temp Pulse Resp BP Pulse Ox 08/01/19 04:35 98.1 F 81 18 123/78 98 08/01/19 00:00 98.2 F 79 16 116/72 98 Intake & Output: Intake & Output 07/29/19 07/30/19 07/31/19 08/01/19 23:59 23:59 23:59 23:59 Intake Total 3707.5 Output Total 1625 Balance 2082.5 - Lab Results Fish Bones: 08/01/19 06:59 07/31/19 09:30 Other Labs: Lab Results x24hrs 08/01/19 07/31/19 07/31/19 Range/Units 06:59 09:30 09:05 WBC 13.2 H 13.4 H (4.8-10.8) x10^3/uL RBC 3.19 L 4.17 L (4.20-5.40) 10^6/uL Hgb 9.9 L 13.0 (12.0-16.0) g/dL Hct 29.3 L 37.7 (37.0-47.0) % MCV 91.8 90.4 (81.0-99.0) fL MCH 31.0 31.2 H (27.0-31.0) pg MCHC 33.8 34.5 (32.0-36.0) g/dL RDW 13.2 13.2 (12.0-15.0) % Plt Count 99 L (130-450) 10^3/uL MPV 12.8 H (7.9-10.8) fL Neut # (Auto) 9.6 H 10.7 H (1.5-6.6) 10^3/uL Lymph # (Auto) 2.6 1.4 L (1.5-3.5) 10^3/uL [place] # (Auto) 0.8 1.2 H (0.0-1.0) 10^3/uL Eos # (Auto) 0.1 0.0 (0.0-0.7) 10^3/uL Baso # (Auto) 0.1 0.0 (0.0-0.1) 10^3/uL Absolute Nucleated RBC 0.00 0.00 x10^3/uL Nucleated RBC % 0.0 0.0 /100WBC Platelet Estimate NORMAL (130-450,000) (NORMAL) Platelet Morphology PLATELET CLUMPING (NORMAL) Sodium 136 (135-145) mmol/L Potassium 3.7 (3.5-5.0) mmol/L Chloride 106 (101-111) mmol/L Carbon Dioxide 20 L (21-32) mmol/L Anion Gap 10.0 (6-13) BUN 9 (6-20) mg/dL Creatinine 0.7 (0.4-1.0) mg/dL Estimated GFR (MDRD) 96 (>89) Glucose 95 (70-100) mg/dL Calcium 8.4 L (8.5-10.3) mg/dL Total Bilirubin 0.4 (0.2-1.0) mg/dL AST 21 (10-42) IU/L ALT 15 (10-60) IU/L Alkaline Phosphatase 123 H (42-121) IU/L Total Protein 6.2 L (6.7-8.2) g/dL Albumin 3.0 L (3.2-5.5) g/dL Globulin 3.2 (2.1-4.2) g/dL Albumin/Globulin Ratio 0.9 L (1.0-2.2) Urine Creatinine mg/dL Ur Total Protein Timed mg/dL Protein/Creatinin Ratio (<=0.2) 07/31/19 Range/Units 08:45 WBC (4.8-10.8) x10^3/uL RBC (4.20-5.40) 10^6/uL Hgb (12.0-16.0) g/dL Hct (37.0-47.0) % MCV (81.0-99.0) fL MCH (27.0-31.0) pg MCHC (32.0-36.0) g/dL RDW (12.0-15.0) % Plt Count (130-450) 10^3/uL MPV (7.9-10.8) fL Neut # (Auto) (1.5-6.6) 10^3/uL Lymph # (Auto) (1.5-3.5) 10^3/uL [place] # (Auto) (0.0-1.0) 10^3/uL Eos # (Auto) (0.0-0.7) 10^3/uL Baso # (Auto) (0.0-0.1) 10^3/uL Absolute Nucleated RBC x10^3/uL Nucleated RBC % /100WBC Platelet Estimate (NORMAL) Platelet Morphology (NORMAL) Sodium (135-145) mmol/L Potassium (3.5-5.0) mmol/L Chloride (101-111) mmol/L Carbon Dioxide (21-32) mmol/L Anion Gap (6-13) BUN (6-20) mg/dL Creatinine (0.4-1.0) mg/dL Estimated GFR (MDRD) (>89) Glucose (70-100) mg/dL Calcium (8.5-10.3) mg/dL Total Bilirubin (0.2-1.0) mg/dL AST (10-42) IU/L ALT (10-60) IU/L Alkaline Phosphatase (42-121) IU/L Total Protein (6.7-8.2) g/dL Albumin (3.2-5.5) g/dL Globulin (2.1-4.2) g/dL Albumin/Globulin Ratio (1.0-2.2) Urine Creatinine 116.2 mg/dL Ur Total Protein Timed 9 mg/dL Protein/Creatinin Ratio 0.1 (<=0.2)
[2019-08-01 07:30] LABS: ALBUMIN 2.5 g/dL (3.2-5.5); ALBUMIN/GLOBULIN RATIO 0.9 (1.0-2.2); BILIRUBIN,TOTAL 0.3 mg/dL (0.2-1.0); CALCIUM 8.2 mg/dL (8.5-10.3); CREATININE 0.7 mg/dL (0.4-1.0); TOTAL PROTEIN 5.3 g/dL (6.7-8.2)
[2019-08-01] MEDS: DOCUSATE SODIUM 100 MG CAPSULE PO SCH ×2 (10:14→21:23)
[2019-08-01] MEDS: SIMETHICONE CHEW 80 MG TABLET PO SCH ×2 (12:57→18:13)
[2019-08-02] MEDS: IBUPROFEN 800 MG TABLET PO SCH (04:25)
[2019-08-02] MEDS: ACETAMINOPHEN 500 MG TABLET PO SCH (05:46)
[2019-08-02] MEDS: DOCUSATE SODIUM 100 MG CAPSULE PO SCH (09:33)
--- NOTE | 2019-08-02 09:52 | Discharge Plan ---
Discharge Plan Problem Reviewed?: Yes Disposition: Home, Self Care Condition: Good Diet: Regular Activity Restrictions: Activity as Tolerated Shower Restrictions: No Driving Restrictions: No No Smoking: If you smoke, Please STOP! Call for help. Follow-up with: Avani Doty MD [Provider Admit Priv/Credential] -
--- NOTE | 2019-08-02 09:52 | PROVIDER PROGRESS NOTE ---
Objective - Vital Signs/Intake & Output Vital Signs: Vital Signs x48h Temp Pulse Resp BP BP Pulse Ox 08/02/19 08:38 97.9 F 78 17 125/83 H 98 08/02/19 04:10 98.2 F 82 18 132/82 H 97 Intake & Output: Intake & Output 07/30/19 07/31/19 08/01/19 08/02/19 23:59 23:59 23:59 23:59 Intake Total 3707.5 Output Total 1625 Balance 2082.5 - Lab Results Fish Bones: 08/01/19 06:59 08/01/19 06:59 Assessment/Plan - Problem List (2) Spontaneous onset of labor Impression: see discharge summary
[2019-08-02] MEDS ORDERED: FLU VACC QS2019-20(6MOS UP)/PF 60 MCG/0.5 ML SYRINGE IM ONE (11:00)
[2019-08-02 12:48] VITALS: BP 120/72
--- NOTE | 2019-08-02 12:50 | Labor Flowsheet ---
Labor Flowsheet Datetime Report Generated by CPN: 08/02/2019 12:50 Datetime: 07/31/2019 16:40 VITAL SIGNS NBP Sys/Celsa/Mean (mmHg): 116 : 69 : 80 Pulse: 81 LaborFlag: Labor Datetime: 07/31/2019 15:39 SpO2 (%): 100 Datetime: 07/31/2019 11:38 Membranes Ruptured Date/Time: 07/31/2019 03:24 Datetime: 07/31/2019 11:34 Frequency (min): 3-5 Duration (sec): 60-80 Pattern: Normal: <= 5 Contractions in 10 Minutes ASSESSMENT A Monitor Mode: Telemetry FHR Baseline Rate : 130 Variability: Moderate 6-25 bpm Accelerations: 15X15 Decelerations: None Category: Category I Oxygen Method: Room Air STAGE 2 Pushing: Coached on Pushing Pushing Position: Pushing with Contractions Pushing Progress: with Pushing Stage 2 Comments: coached patient on slow small pushes Datetime: 07/31/2019 11:33 Comments: Patient complete, +2 at 1027. called and at bedside at 1034, patient started pushing at 1038. Frequent position changes L and R lateral, high throne. Patient pulling own legs ba ck while pushing. FHR 130s-140s, moderate variability, with accelerations throughout 2nd stage. Few variables and early decelerations noted, RN at bedside continually. Minimal coaching to push. Head vi sible with pushing, notified at 1125. Dr. Doty at bedside at 1129, female infant delivered vi a at 1134. Datetime: 07/31/2019 11:30 UTERINE ACTIVITY Monitor Mode: External Quality: Strong Resting Tone (Palpate): Relaxed MEDICATIONS Pitocin (milliunits): Increased to @ 2 Medication Comments: pit increased to 2 per provider verbal order Datetime: 07/31/2019 11:29 COMMUNICATION Communication: Provider at Bedside Provider Notified (Name): Dr.Soren Datetime: 07/31/2019 11:25 Communication Comments: visual head with pushing Datetime: 07/31/2019 11:19 I/O Interventions: [place] Discontinued Datetime: 07/31/2019 11:14 Respirations: 18 Temperature (C): 36.5 Datetime: 07/31/2019 11:10 Patient Position/Activity: Right Tilt; Semi-Fowlers Datetime: 07/31/2019 11:06 Monitor Interventions for FHR: Ultrasound Adjusted Datetime: 07/31/2019 10:55 PATIENT CARE IV/Blood Work: IV Bolus Started Patient Care Comments: 500 Datetime: 07/31/2019 10:34 Membrane Comments: forebag ruptured by MD Datetime: 07/31/2019 10:27 VAGINAL EXAM Dilatation (cm): 10.0 Effacement (%): 100 Station: 2 Exam by: Mona RN Datetime: 07/31/2019 10:20 PAIN Pain Scale: 3 Pain Presence: Intermittent Pain Type: Contraction Pain Location: Abdomen; Back; Right Hip Pain Relief Measures: Comfort Measures Pain Coping: Talking Through Contractions Comfort Measures: Family Support Datetime: 07/31/2019 10:15 Antibiotics: Ampicillin IV 2 Gm Datetime: 07/31/2019 09:59 Pain Assessment Comments: anesthesia at bedside Antiemetics/Antacids: Zofran (mg) @ 4 Datetime: 07/31/2019 09:48 Anesthesia Comments: A Roni at bedside Datetime: 07/31/2019 08:33 Provider Reviewed Strip: Yes Datetime: 07/31/2019 07:55 Hygiene: Underpad Changed Datetime: 07/31/2019 07:15 Monitor Interventions for UA: Grant Adjusted Datetime: 07/31/2019 07:08 Contraction Comments: applied new toco d/t previous one out of battery Datetime: 07/31/2019 06:59 Actions for Decelerations: Provider Notified Datetime: 07/31/2019 06:43 Vaginal Bleeding: Normal Show Cervix, Consistency: Soft Cervix, Position: Anterior Position 'A': Left Occipital Transverse Vaginal Exam Comments: anterior Datetime: 07/31/2019 03:34 Notification Reason: Status Update; Labor Status; Membrane Status; Uterine Activity Datetime: 07/31/2019 03:25 Anesthesia Level Check: T11 Datetime: 07/31/2019 03:24 Membrane Status: Ruptured Membranes Rupture Method: Spontaneous Amniotic Fluid Color: Clear Amniotic Fluid Amount: Small Amniotic Fluid Odor: None Nitrazine: Positive Datetime: 07/31/2019 00:11 Epidural Procedure: Test Dose Datetime: 07/31/2019 00:05 PROCEDURE TIME OUT Procedure Verify: Correct Patient Identity; Correct Side and Site are Marked Datetime: 07/30/2019 23:57 ANESTHESIA Anesthesia Plans: Epidural Epidural Positioning: Sitting
--- NOTE | 2019-08-02 18:51 | DISCHARGE SUMMARY ---
Physician: Avani Doty MD DATE OF ADMISSION: 07/30/2019 DATE OF DISCHARGE: 08/02/2019 ADMISSION DIAGNOSES 1. Spontaneous labor at term. 2. Group B strep negative. 3. Gestational hypertension. DISCHARGE DIAGNOSES 1. Spontaneous vaginal delivery. 2. Gestational hypertension, resolved. OPERATIONS AND PROCEDURES: 07/31/2019 spontaneous vaginal delivery of a liveborn female, weight 6 pounds 14 ounces, Apgars 7 at one minute and 9 at five minutes. She had a second-degree perineal laceration that was repaired and an estimated blood loss of 200 mL. HOSPITAL COURSE: The patient was admitted in spontaneous labor and was found to have elevated blood pressures. She had no symptoms, and she had a normal protein to creatinine ratio and AST, ALT, and platelets. Her elevated blood pressures were in the mild range, and these resolved . For her group B strep positivity, she received complete prophylaxis. Her course was unremarkable. By day 2, she was requesting discharge home. She was eating, ambulating, and urinating and without difficulties. She did not have any significant pain on her breasts, abdomen or vulva. Her mood was good, and she was sleeping some. PHYSICAL EXAMINATION ON DISCHARGE VITAL SIGNS: Afebrile, normal vital signs. GENERAL: Alert and smiling, in no apparent distress. ABDOMEN: Soft, nontender, nondistended. Fundus firm, nontender, at the umbilicus. EXTREMITIES: There is trace lower extremity edema, nonpitting over the ankle. LABS: hematocrit was 29. The patient is Rh positive and rubella immune. She had a Tdap vaccine during but not an influenza vaccine. She received this prior to discharge. DISCHARGE MEDICATIONS 1. Continue vitamins. 2. Ibuprofen p.r.n. pain. 3. Colace p.r.n. to soften stool. Discharge precautions and routine precautions were given. 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 DISCHARGE DISPOSITION: Home. DISCHARGE CONDITION: Good. TD: 08/02/2019 10:03 KADY
== END 2019-08-02 12:40 | disposition home or self-care (01) | DRG 807 ==
LOC: WFO 22:18 → FBP 22:19 → WFO 22:32 → FBP 22:33
PROVIDERS: ADMIT Obstetrics & Gynecology; ATTEND Obstetrics & Gynecology
PROC: 10E0XZZ Delivery of Products of Conception, External Approach (ICD-10-PCS; principal; 2019-07-31)
PROC: 0KQM0ZZ Repair Perineum Muscle, Open Approach (ICD-10-PCS; 2019-07-31)
DX: O99.284 Endocrine, nutritional and metabolic diseases complicating childbirth (principal); Z37.0 Single live birth; E28.2 Polycystic ovarian syndrome; O70.1 Second degree perineal laceration during delivery; O99.824 Streptococcus B carrier state complicating childbirth; O13.4 Gestational [pregnancy-induced] hypertension without significant proteinuria, complicating childbirth; Z3A.40 40 weeks gestation of pregnancy; Z82.49 Family history of ischemic heart disease and other diseases of the circulatory system
CPT/HCPCS: 36415; 80053; 82570; 84156; 85025; 87081; 90686; 93005; A9270; J7120; 99213

== ENCOUNTER 2020-05-26 07:00 | Outpatient (CLI) | payer OTHER ==
[2020-05-26 11:46] LABS: BASOPHILS % (AUTO) 0.4 %; EOSINOPHILS # (AUTO) 0.1 10^3/uL (0.0-0.7); EOSINOPHILS % (AUTO) 1.4 %; HGB - HEMOGLOBIN 14.4 g/dL (12.0-16.0); LYMPHOCYTES # (AUTO) 1.9 10^3/uL (1.5-3.5); LYMPHOCYTES % (AUTO) 37.8 %; MEAN CORPUSCULAR HEMOGLOBIN 29.6 pg (27.0-31.0); MEAN CORPUSCULAR HGB CONC 34.2 g/dL (32.0-36.0); MEAN CORPUSCULAR VOLUME 86.4 fL (81.0-99.0); MEAN PLATELET VOLUME 12.4 fL (7.9-10.8); MONOCYTES # (AUTO) 0.4 10^3/uL (0.0-1.0); MONOCYTES % (AUTO) 7.8 %; NEUTROPHILS # (AUTO) 2.6 10^3/uL (1.5-6.6); NEUTROPHILS % (AUTO) 52.4 %; PLT - PLATELET COUNT 185 10^3/uL (130-450); RED BLOOD COUNT 4.87 10^6/uL (4.20-5.40); RED CELL DISTRIBUTION WIDTH 12.2 % (12.0-15.0); WHITE BLOOD COUNT 4.9 x10^3/uL (4.8-10.8)
[2020-05-26 11:59] LABS: ALBUMIN 4.4 g/dL (3.2-5.5); ALBUMIN/GLOBULIN RATIO 1.3 (1.0-2.2); ALKALINE PHOSPHATASE 65 IU/L (42-121); ALT ALANINE AMINOTRANSFERASE 16 IU/L (10-60); AST ASPARTATE AMINOTRANSFERASE 19 IU/L (10-42); BILIRUBIN,TOTAL 0.8 mg/dL (0.2-1.0); BUN - BLOOD UREA NITROGEN 8 mg/dL (6-20); CARBON DIOXIDE - CO2 23 mmol/L (21-32); CHLORIDE 103 mmol/L (101-111); CHOL/HDL RATIO 2.5 (<4.4); CHOLESTEROL 173 mg/dL; CREATININE 0.7 mg/dL (0.4-1.0); GLUCOSE 92 mg/dL (70-100); HDL CHOLESTEROL 68 mg/dL; LDL CHOLESTEROL,CALCULATED 93 mg/dL; LDL/HDL RATIO 1.4 (<4.4); SODIUM 136 mmol/L (135-145); TOTAL PROTEIN 7.7 g/dL (6.7-8.2); VLDL CHOLESTEROL 12 mg/dL
== END 2020-05-26 23:59 | disposition home or self-care (01) ==
LOC: LAB.WCP 07:00
PROVIDERS: ATTEND Family Medicine
DX: Z00.00 Encounter for general adult medical examination without abnormal findings (principal)
CPT/HCPCS: 36415; 80050; 80061; 83721

== ENCOUNTER 2020-08-26 10:10 | Emergency (ER) | payer OTHER ==
--- NOTE | 2020-08-26 10:19 | ED Physician Documentation ---
PD HPI UPPER EXT INJURY - Stated complaint Stated Complaint: R ARM PX - Chief complaint Chief Complaint: Ext Problem - History obtained from History obtained from: Patient - History of Present Illness Location: Right, Arm Type of injury: No: Fall, Twist Where injury occurred: Home Timing - onset: How many days ago (3) Timing - duration: Days (3) Timing - details: Gradual onset, Still present, Constant (onset right upper arm pain few days ago, worse with flexion andd pronation of that arm. Pain from shoulder/clavicle area down to proximal forearm medially. 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 has a 1 year old daughter that she lifts often, mostly using right arm to do it.) Review of Systems Constitutional: denies: Fever, Chills Nose: denies: Rhinorrhea / runny nose, Congestion Throat: denies: Sore throat Respiratory: denies: Cough Skin: denies: Rash Musculoskeletal: denies: Neck pain, Back pain Neurologic: denies: Focal weakness, Numbness Psychiatric: denies: Depressed PD PAST MEDICAL HISTORY - Past Medical History Cardiovascular: None Respiratory: None Neuro: None Endocrine/Autoimmune: None GI: None : None Musculoskeletal: None - Past Surgical History Past Surgical History: No - Present Medications Home Medications: Ambulatory Orders Medication Instructions Recorded Confirmed Levonorgestrel 20 Mcg/24H [Mirena] 08/26/20 - Allergies Allergies/Adverse Reactions: Allergies Allergy/AdvReac Type Severity Reaction Status Date / Time cefaclor [From Ceclor] Allergy Mild Unknown Verified 08/26/20 10:19 - Social History Does the pt smoke?: No Smoking Status: Never smoker PD ED PE NORMAL - Vitals Vital signs reviewed: Yes - General General: Alert and oriented X 3, No acute distress, Well developed/nourished - Neck Neck: Supple, no meningeal sign, No bony TTP, No adenopathy - Cardiac Cardiac: RRR, No murmur - Respiratory Respiratory: No respiratory distress, Clear bilaterally - Derm Derm: Normal color, Warm and dry, No rash - Extremities Extremities: Other (right arm without any distal edema, and has good color, pulses, and cap refill. The upper arm with tenderness medial mid biceps area up to the clavicle area. Pain elicited with flexion at elbow, but more with pronation of hand against resistance. ) - Neuro Neuro: Alert and oriented X 3, No motor deficit, No sensory deficit, Normal speech Results - Vitals Vitals: Vital Signs - 24 hr 08/26/20 11:53 Temperature 36.3 C L Heart Rate 76 Respiratory 16 Rate Blood Pressure 132/74 H O2 Saturation 98 Oxygen O2 Source Room air - Rads (name of study) humerus Radiology: Prelim report reviewed (no acute process), See rad report PD MEDICAL DECISION MAKING - ED course Complexity details: considered differential (seems likely muscle tendonitis of biceps or the brachioradialis, related some to work but also to carrying her child in arm. ), d/w patient Departure - Departure Disposition: 01 Home, Self Care Clinical Impression: Tendonitis Condition: Stable Record reviewed to determine appropriate education?: Yes Instructions: Tendonitis and Tenosynovitis Follow-Up: Rachel Barlow PA [Primary Care Provider] - Comments: He appears normal which is only part of the things I can go wrong in the arm. It does seem like you have some tendinitis either of the biceps or more likely brachioradialis. This is probably an overuse or repetitive use problem and should be relatively short term. Use the sling periodically to really rest the arm. Try to minimize consistent lifting with the right arm. Make sure you are computer work is ergonomically good height. Use some anti-inflammatory such as ibuprofen 400 to 600 mg with food 3 times a day regularly for the next week. To that add Tylenol every 4-6 hours if needed for pain. I would anticipate improvement slowly over the next several days to week and resolution within 1 to 2 weeks. Recheck if not improved in that timeframe. Discharge Date/Time: 08/26/20 11:55
[2020-08-26] MEDS ORDERED: IBUPROFEN 600 MG TABLET PO STA (10:52)
[2020-08-26] MEDS ORDERED: ACETAMINOPHEN 325 MG TABLET PO STA (10:52)
--- NOTE | 2020-08-26 11:32 | XRAY Report ---
PROCEDURE: Humerus RT INDICATIONS: upper arm pain, without obvious injury TECHNIQUE: 2 views of the humerus were acquired. COMPARISON: None. FINDINGS: Bones: No fractures or dislocations. No suspicious bony lesions. Soft tissues: No suspicious soft tissue calcifications. IMPRESSION: 1. No fracture or dislocation. Reviewed by: Elvis Horowitz MD on 08/26/2020 11:30 AM [facility] Approved by: Elvis Horowitz MD on 08/26/2020 11:30 AM [facility] Station ID: [id number]
[2020-08-26 11:56] VITALS: BP 132/74
== END 2020-08-26 11:55 | disposition home or self-care (01) ==
LOC: ED 10:10
DX: M77.9 Enthesopathy, unspecified (principal)
CPT/HCPCS: 73060; 99282; 99283; A9270